=== PATIENT | female | born 1980 | race Caucasian/White ===

== ENCOUNTER 2016-11-12 02:27 | Emergency (ER) | payer SELFPAY ==
[2016-11-12 04:00] VITALS: BMI 34.7
[2016-11-12] MEDS: Lactated Ringer's 1,000 ML IV SCH ×2 (04:00→05:20)
[2016-11-12 04:32] LABS: BASO % 0.4 % (0.0-2.0); EOS # 0.1 K/uL (0.0-0.7); EOS % 1.3 % (0.0-4.0); HEMOGLOBIN 11.3 g/dL (12.0-16.0); LYMPH # 2.1 K/uL (1.0-4.3); LYMPH % 26.4 % (20.0-40.0); MEAN CELL VOLUME 85.5 fl (81.0-99.0); MEAN CORPUSCULAR HEMOGLOBIN 29.3 pg (27.0-31.0); MEAN CORPUSCULAR HGB CONC 34.3 g/dL (33.0-37.0); MEAN PLATELET VOLUME 8.8 fl (7.2-11.7); MONO # 0.5 K/uL (0.0-0.8); MONO % 6.2 % (0.0-10.0); NEUT # 5.2 K/uL (1.8-7.0); NEUT % 65.7 % (50.0-75.0); NRBC % 0.1 % (0.0-0.0); RBC 3.85 Mil/uL (3.80-5.20); RED CELL DISTRIBUTION WIDTH 13.4 % (11.5-14.5); WHITE BLOOD COUNT 7.9 K/uL (4.8-10.8)
[2016-11-12 04:39] LABS: ALB/GLOB RATIO 1.1 (1.0-2.1); ALBUMIN 3.4 g/dL (3.5-5.0); ALT/SGPT 21 U/L (9-52); AST/SGOT 20 U/L (14-36); BLOOD UREA NITROGEN 8 mg/dl (7-17); CALCIUM 8.6 mg/dL (8.4-10.2); GFR AFRICAN-AMERICAN > 60; GFR NON-AFRICAN AMERICAN > 60; SQUAMOUS EPITHIAL 2 /hpf (0-5); URINE BACTERIA OCC (<OCC); URINE BILIRUBIN NEGATIVE (NEGATIVE); URINE BLOOD NEGATIVE (NEGATIVE); URINE CLARITY CLEAR (Clear); URINE COLOR STRAW (YELLOW); URINE GLUCOSE (UA) NEG (Normal); URINE LEUKOCYTE ESTERASE TRACE Leu/uL (Negative); URINE NITRATE NEGATIVE (NEGATIVE); URINE PROTEIN NEGATIVE (NEGATIVE); URINE UROBILINOGEN 0.2-1.0 mg/dL (0.2-1.0)
--- NOTE | 2016-11-12 07:09 | OBHP ---
Datetime: 11/12/2016 04:02 IP Adm Impression: , intrauterine IP Admit Plan: Observation/Evaluation Admit Comment, IP Provider: This is a 36 y/o at 34.5 weeks GA with a JUDY 12/19/16 by LMP an d confirmed by 1st trim US, complaining of CTX that began at 11 pm last night. CTX's occurs every 5/1 0 mins, 8/10 intensity and associated with low pelvic pressure pain. +FM. Last coitus > 10 days ago. Pt denies leakage of fluids, vaginal bleeding or dysuria. Medications: Aspirin and PNV. Allegies: Penicillin-Anaphylaxis. PMHx: denied. PSHx: . OBHx: . 1st complicated by Pre-eclampsia, NVSD at 35 weeks GA on 12/08/14 with No further compli cations. 2nd , twins, delivered by on 01/26/16 at 35 weeks GA. Current started 40 days after C-sections. SHx: No tobacco, alcohol or rec drugs. Lives with and 3 children. A_P: IUP at 34.5 weeks GA. Pt will be observed. IV fluids started. CBC, CMP and urinalysis ordered. Case discussed with Dr Valente. Frank Clement PGY-1. The patient was seen and examined with the resident and I agree with the notes the patient was obs erved for several hours cervical exam long closed posterior patient not in labor discharge home with labor precautions Pelvic Type - PN: Adequate Abdomen - PN: Normal Back - PN: Normal Lungs - PN: Normal Heart - PN: Normal Thyroid - PN: Normal Neurologic - PN: Normal HEENT - PN: Normal General - PN: Normal FHR - Baseline A Provider: 140 Gestation - Est Wks by US: 34.5 EGA AdmitDate IP: 34.5 Vital Signs Provider: Reviewed IP Chief Complaint: Uterine contractions NICHD Variability Prov Fetus A: Moderate 6-25bpm FHR Category Provider Fetus A: Category I NICHD Decel Fetus A IP Provider: None Genitourinary Exam: Normal
== END 2016-11-12 07:25 | disposition home or self-care (01) ==
LOC: H.EROB2 02:27
DX: O47.03 False labor before 37 completed weeks of gestation, third trimester (principal); Z3A.34 34 weeks gestation of pregnancy

== ENCOUNTER 2016-11-16 11:03 | Emergency (ER) | payer SELFPAY ==
[2016-11-16 12:14] VITALS: BMI 37.0
[2016-11-16 13:13] LABS: SQUAMOUS EPITHIAL 1 /hpf (0-5); URINE BACTERIA RARE (<OCC); URINE BILIRUBIN NEGATIVE (NEGATIVE); URINE BLOOD NEGATIVE (NEGATIVE); URINE CLARITY SLIGHTY-CLOUDY (Clear); URINE COLOR YELLOW (YELLOW); URINE GLUCOSE (UA) NEG (Normal); URINE LEUKOCYTE ESTERASE NEG Leu/uL (Negative); URINE NITRATE NEGATIVE (NEGATIVE); URINE PROTEIN NEGATIVE (NEGATIVE); URINE UROBILINOGEN 0.2-1.0 mg/dL (0.2-1.0)
--- NOTE | 2016-11-16 13:29 | OBHP ---
Datetime: 11/16/2016 11:53 IP Adm Impression: , intrauterine IP Admit Plan: Observation/Evaluation Admit Comment, IP Provider: This is a 36 y/o at 35 weeks 2 days GA with a JUDY 12/19/16 by Glory GALVEZ and confirmed by 1st trim US, was sent to [facility] from [facility] clinic after reporting decreased mov ement x 3 days. Last coitus > 15 days ago. Pt denies leakage of fluids or vaginal bleeding. pt repor ts dysuria x 1 month. denies fever, chills, nausea, vomiting, flank pain, headche or dizziness. OBHx: . 1st complicated by Pre-eclampsia, NVSD at 35 weeks GA on 12/08/14 with No further compli cations. 2nd : twins, delivered by on 01/26/16 at 35 weeks GA. Current started 40 days after C-sections. PMHx: denied. SHx: No tobacco, alcohol or rec drugs. Lives with and 3 children. Medications: Aspirin and PNV. Allegies: Penicillin-Anaphylaxis. Assessment: IUP at 35.2 weeks GA presents to [facility] for decreased movement for last 3 days. dysuria Plan: 1. NST 2: UA addendum p:d/c pt home kick counts d/w pt with speech language pathologist. return to hospital if decreased fm is noted wit kick clunst f/u at next ob appt Continuous trace monitoring. UA Growth scan done on 10/25/16 shows HECTOR 17 and BPP 8/8. nst reactive d/w pt - she states she has not felt movement while in [facility] today. Extremities - PN: Normal Abdomen - PN: Normal Back - PN: Normal Lungs - PN: Normal Heart - PN: Normal Neurologic - PN: Normal HEENT - PN: Normal General - PN: Normal FHR - Baseline A Provider: 120 Comments, ACOG Physical Exam: 11/13 ob us bpp 8/8; hector nl; s c/w dates UA NEG IP Hx Assessment: The History has been Reviewed and is Current EGA AdmitDate IP: 35.2 Vital Signs Provider: Reviewed IP Chief Complaint: Decreased movement NICHD Variability Prov Fetus A: Moderate 6-25bpm NICHD Accel Fetus A IP Provider: 15X15 FHR Category Provider Fetus A: Category I NICHD Decel Fetus A IP Provider: None Genitourinary Exam: Normal DTRs - PN: Normal (Annotations: Data stored by CPN on behalf of user)
== END 2016-11-16 13:22 | disposition home or self-care (01) ==
LOC: H.EROB2 11:03
DX: O47.03 False labor before 37 completed weeks of gestation, third trimester (principal); Z3A.35 35 weeks gestation of pregnancy; Z87.59 Personal history of other complications of pregnancy, childbirth and the puerperium

== ENCOUNTER 2016-12-14 07:55 | Inpatient (IN) | payer MEDICAID, SELFPAY ==
[2016-12-14] MEDS: Lactated Ringer's 1,000 ML IV SCH ×3 (08:15→21:09)
[2016-12-14] MEDS ORDERED: Lactated Ringer's 1,000 ML IV SCH (08:23)
[2016-12-14 08:26] VITALS: BMI 36.6
[2016-12-14] MEDS ORDERED: Oxytocin 30 units/LR 500ML 30 U/500 ML BAG IV ONE (08:39)
[2016-12-14 08:45] LABS: BASO # 0.1 K/uL (0.0-0.2); BASO % 0.8 % (0.0-2.0); EOS # 0.1 K/uL (0.0-0.7); EOS % 1.2 % (0.0-4.0); HEMATOCRIT 37.3 % (34.0-47.0); LYMPH # 2.5 K/uL (1.0-4.3); LYMPH % 33.7 % (20.0-40.0); MEAN CELL VOLUME 85.1 fl (81.0-99.0); MEAN CORPUSCULAR HEMOGLOBIN 28.9 pg (27.0-31.0); MEAN PLATELET VOLUME 8.9 fl (7.2-11.7); MONO # 0.4 K/uL (0.0-0.8); MONO % 5.9 % (0.0-10.0); NEUT # 4.3 K/uL (1.8-7.0); NEUT % 58.4 % (50.0-75.0); NRBC % 0.1 % (0.0-0.0); RED CELL DISTRIBUTION WIDTH 13.8 % (11.5-14.5); WHITE BLOOD COUNT 7.4 K/uL (4.8-10.8)
[2016-12-14] MEDS ORDERED: Phenylephrine 10 mg/ml Inj ONE (09:05)
[2016-12-14] MEDS ORDERED: ePHEDrine 50 mg/ml Inj ONE (09:05)
[2016-12-14] MEDS ORDERED: Morphine 1 mg/ml preservative-free Inj(Duramorph) ONE (09:10)
[2016-12-14] MEDS ORDERED: Clindamycin 600 MG in Sodium Chloride 0.9% 100 ML IVPB SCH (09:15)
[2016-12-14] MEDS ORDERED: DiphenhydrAMINE 50 mg/ml Inj IVP PRN ×2 (10:28→15:36)
[2016-12-14] MEDS ORDERED: Oxycodone/Acetaminophen 5/325 mg Tab PO PRN ×3 (11:15→15:36)
[2016-12-14] MEDS ORDERED: Trimethobenzamide 200 mg/2 mL Inj IM ONE ×2 (14:02→14:10)
--- NOTE | 2016-12-14 14:20 | OBDS ---
DELIVERY PERSONNEL Delivery Doctor: Tatum Rinaldi MD Scrub Nurse: Gabbi Jalloh OBT Architectural Modeler: Corrine Edmondson RN Anesthesiologist: Nakul Rueda MD MATERNAL INFORMATION Delivery Anesthesia: Spinal Medications in Delivery: Pitocin 30 units Estimated Blood Loss (ml): 650 Placenta Cultured: No Maternal Complications: None Provider Comments: op note start: 9:58 preop dx: 39.2wks; prior cd; latent phase labor postop dx: same procedure: repeat cd surg: orossetos 1st asst: fhyman 2nd asst: [id number] sangeetha lupe anesth: spinal dr rueda ebl: 650cc findings: viable female 3620g 9_9; dense adhesions of rectus fascia to overlying adipose tissue, u nderlying rectus muscle path: none griffiths to drainage pt to rr to nbn complic none LABOR SUMMARY EDC: 12/19/2016 00:00 No. Babies in Womb: 1 Attempted: No Labor Anesthesia: Spinal LABOR INFORMATION Reason for Induction: Not Applicable Oxytocin: N/A Group B Beta Strep: Negative Steroids Given: None Reason Steroids Not Administered: Not Applicable MEMBRANES Membranes Rupture Method: Artificial Rupture of Membranes: 12/14/2016 10:14 Length of Rupture (hrs): 0.00 Amniotic Fluid Color: Clear Amniotic Fluid Amount: Moderate Amniotic Fluid Odor: Normal STAGES OF LABOR Stage 3 hrs: 0 Stage 3 min: 1 CSECTION DELIVERY Primary Indication: Repeat Elective CSection Urgency: Elective CSection Incidence: Repeat Labor: No Labor Elective: Elective CSection Incision: Lower Uterine Transverse BABY A INFORMATION Infant Delivery Date/Time: 12/14/2016 10:14 Method of Delivery: Born in Route : No : N/A Forceps: N/A Vacuum Extraction: N/A Shoulder Dystocia : No SHOULDER DYSTOCIA BABY A Infant Delivery Date/Time: 12/14/2016 10:14 PRESENTATION/POSITION BABY A Presentation: Cephalic Cephalic Presentation: Vertex Vertex Position: Left Occipital Anterior Breech Presentation: N/A PLACENTA INFORMATION BABY A Placenta Delivery Time : 12/14/2016 10:15 Placenta Method of Delivery: Spontaneous Placenta Status: Delivered SCORES BABY A Heart Rate 1 min: >100 bpm Resp Effort 1 min: Good Cry Reflex Irritability 1 min: Cough or Sneeze or Pulls Away Muscle Tone 1 min: Active Motion Color 1 min: Body Coronita, Extremities Blue Resuscitation Effort 1 min: Tactile Stimulation SCORE 1 MIN: 9 Heart Rate 5 min: >100 bpm Resp Effort 5 min: Good Cry Reflex Irritability 5 min: Cough or Sneeze or Pulls Away Muscle Tone 5 min: Active Motion Color 5 min: Body Coronita, Extremities Blue Resuscitation Effort 5 min: Tactile Stimulation SCORE 5 MIN: 9 INFANT INFORMATION BABY A Gestational Age at Delivery: 39.0 Gestational Status: Term Infant Outcome : Liveborn Condition : Stable Sex: Female IDENTIFICATION/MEDS BABY A ID Band Number: [id number] ID Band Location: Left Leg; Left Arm WEIGHT/LENGTH BABY A Birthweight (gms): 3620 Infant Weight (lb): 8 Weight (oz): 0 CORD INFORMATION BABY A No. Cord Vessels: 3 Nuchal Cord : N/A Nuchal Cord Other: body cord loose Cord Blood Taken: N/A Infant Suction: None ASSESSMENT BABY A Infant Complications: None Physical Findings at Delivery: Within Normal Limits Respirations: Appears Normal Apprentice Lineman Third Step/ALS Called : No Care By: Saleem Julian Transferred To: Remains with Mother
--- NOTE | 2016-12-14 15:01 | OBADHP ---
Datetime: 12/14/2016 09:12 Admit Comment, IP Provider: CC: scheduled repeat HPI: 36 YO 39.2 wks IUP presents to [facility] for repeat scheduled . Patient notes con tractions that started around 6AM this morning and are currently 5 mins apart. Endorses good FM, no L OF, no VB + contractions. No complications during this thus far. Was taking asa 81mg during the , stopped 2 weeks ago. Denies headache, dizziness, fever, chest pain, dyspnea. Obhx: NVD in 2014, C section for twin gestation in 2016;hx of preclampsia during the first pregnan cy Gynhx: denies hx of STIs, last pap was 2015 and normal PMH: denies SHx: 2015 FH: HTN and FM in mother SH: , denies use of alcohol, illicit drugs and smoking Allergies: penicilln, anaphalyxis Meds: PNV and ASA 81mg (stopped 2 weeks ago) - for h/o prophylaxis PE: VS: stable GEN: NAD, looks comfortable Cardio: S1S2 no M/G/R Resp: clear sounds b/l Abdomen: Gravid, NT, BS+ Ext: no edema, NT Cerv: Closed and 30% effaced FHM: 120, moderate variability. Contractions every 7-8 mins Assessment/Plan: 36 YO 39.2 wks IUP presents to [facility] for repeat scheduled . Pt is doing well, abx given clinda 600mg. Bloodtype A+, GC neg, GBS neg, Hep B neg, HIV neg, RPR neg, Rubella immune. -Admit to Labor and Delivery for repeat c-sec -NPO diet -CBC/Type and Screen/RPR, Intravenous access - Monitoring, Monitor Labor progress, Discussion about her condition including labor and deli very Pt seen and discussed with Dr. Mariel Esquivel, PGYI obh addendum: pt seen _ examined by me. agree with above assessmenta and plan. informed consent obtained for cd. Pelvic Type - PN: Adequate Extremities - PN: Normal Abdomen - PN: Normal Back - PN: Not Done Breast - PN: Not Done Lungs - PN: Normal Heart - PN: Normal Thyroid - PN: Not Done Neurologic - PN: Normal HEENT - PN: Normal General - PN: Normal FHR - Baseline A Provider: 120 Membranes, Provider: Intact Contraction Comments Provider: q4-6min IP Hx Assessment: The History has been Reviewed and is Current Vital Signs Provider: Reviewed; Within Normal Limits IP Chief Complaint: Scheduled Section NICHD Variability Prov Fetus A: Moderate 6-25bpm NICHD Accel Fetus A IP Provider: 15X15 FHR Category Provider Fetus A: Category I Dilatation, Provider: 0 Effacement, Provider: 30 Station, Provider: -3 Genitourinary Exam: Normal DTRs - PN: Not Done EGA AdmitDate IP: 39.2 IP Adm Impression: Term, intrauterine IP Admit Plan: Admit to unit; Initiate Section protocol Datetime: 11/16/2016 11:53 Comments, ACOG Physical Exam: 11/13 ob us bpp 8/8; anna nl; s c/w dates UA NEG NICHD Decel Fetus A IP Provider: None Datetime: 11/12/2016 04:02 Gestation - Est Wks by US: 34.5
[2016-12-14] MEDS ORDERED: Simethicone 80 mg Chewtab PO SCH (16:00)
[2016-12-14] MEDS: Simethicone 80 mg Chewtab PO SCH ×2 (16:00→22:01)
[2016-12-15] MEDS: Simethicone 80 mg Chewtab PO SCH ×4 (04:33→21:20)
[2016-12-15] MEDS: Lactated Ringer's 1,000 ML IV SCH (04:35)
[2016-12-15] MEDS: Oxycodone/Acetaminophen 5/325 mg Tab PO PRN ×3 (04:43→21:39)
--- NOTE | 2016-12-15 05:47 | OP ---
PROCEDURE DATE: 12/14/2016 PREOPERATIVE DIAGNOSES: 1. A 39.2-week . 2. Latent phase labor onset. 3. History of prior section. 4. Declined vaginal after section. POSTOPERATIVE DIAGNOSES: 1. A 39.2-week . 2. Latent phase labor onset. 3. History of prior section. 4. Declined vaginal after section. PROCEDURE: Repeat low-transverse section. SURGEON: Dr. Claude Floyd. CORRECTIONS UNIT SUPERVISOR: Dr. Jacquelin Liang. SECOND ASP DEVELOPER: Dr. Brook Francois, PGY-1. TYPE OF ANESTHESIA: Spinal. ANESTHESIOLOGIST: Dr. Rueda. ESTIMATED BLOOD LOSS: 650 mL. FINDINGS: Showed a viable female in left occiput, anterior presentation with a weight of 3620 g and Apgars of 9 and 9 and clear amniotic fluid. Dense adhesions of the rectus fascia to the overlying adipose tissue and the underlying rectus muscle. PATHOLOGY SPECIMEN: None. DRAINS: Fishman catheter to drainage. DESTINATION: The patient to recovery room and to nursery. COMPLICATIONS: None. INDICATIONS: The patient is a 36-year-old female 3 para 0-2-0-3 with a history of delivery vaginally followed by a primary section for twins 10 months ago. She presents today for a repeat section. An informed consent was obtained for the surgery and the patient desired the surgical procedure. DESCRIPTION OF PROCEDURE: The patient was taken back to the operating room. She underwent a spinal anesthesia and a Fishman catheter was subsequently placed. She was then placed in dorsal supine position with a leftward tilt, prepped and draped in the routine sterile fashion. A Pfannenstiel skin incision was made at the site of the old scar and the incision was carried down to the underlying rectus fascia, which is incised in the midline and the incision was extended bilaterally. There were dense adhesions noted of the subcutaneous tissue down to the rectus fascia. The inferior rectus facial edge was grasped with Kochers, and the underlying rectus muscle was dissected off. The same procedure was performed along the superior rectus fascial edge. The superior rectus fascia was densely adherent to the underlying rectus muscle. The bladder was noted to be elevated due to the adhesions of the peritoneum to the overlying rectus muscle. The abdominal cavity was entered superiorly and the adhesions were lysed. The adhesions of the peritoneum to the overlying rectus muscle and underlying uterus were lysed with blunt and sharp dissection. A bladder flap was created using a sharp dissection. The bladder blade was reinserted to be retrack the bladder further inferiorly. A low transverse incision was made with the knife and the uterine cavity entered. The uterine incision was digitally extended laterally and in a superior & inferior manner. The 's head was delivered followed by the remaining portion of the baby. The mouth and nares were suctioned. The cord was clamped and cut. The baby handed off to the awaiting director of sales support. Cord blood was collected. The placenta was delivered spontaneously and intact. The uterus was exteriorized and cleared of all clots and debris. The uterine incision was reapproximated with 0-Vicryl in a running locked fashion followed by an imbricated stitch of 0- Monocryl. The abdomen was irrigated and cleared of all clots and debris. The uterus was returned into the abdomen. The uterine incision was reinspected and good hemostasis was confirmed. The gutters were cleared of all clots and debris. The peritoneum was reapproximated with 2-0 Vicryl in a running fashion and the muscle with running sutures of 2-0-Vicryl. The fascia was reapproximated with 0-Vicryl beginning in the left lateral corner and going to the midline and another stitch of 0-Vicryl beginning in the right lateral quadrant going to the midline. Each suture was respectively tied. The wound was irrigated and good hemostasis confirmed. The subcutaneous tissue was re-approximated with 2-0 plain in a simple interrupted fashion. The skin was reapproximated with dustin. Of note Dr. Jacquelin Liang, was my first certified surgical tech/first assistant. She assisted in surgical entry, surgical exposure, surgical hemostasis, delivery of the baby and surgical closure. Her assistance was essential to the performance of the procedure. She also assisted in surgical lysis of adhesions. All sponge, lap and needle counts were correct x4. The patient returned to the recovery room in satisfactory condition. Claude Floyd MD MARY
[2016-12-15 07:20] LABS: BASO % 0.4 % (0.0-2.0); EOS # 0.1 K/uL (0.0-0.7); EOS % 0.9 % (0.0-4.0); HEMATOCRIT 32.7 % (34.0-47.0); LYMPH # 1.6 K/uL (1.0-4.3); MEAN CELL VOLUME 84.8 fl (81.0-99.0); MEAN CORPUSCULAR HEMOGLOBIN 28.9 pg (27.0-31.0); MEAN CORPUSCULAR HGB CONC 34.1 g/dL (33.0-37.0); MEAN PLATELET VOLUME 8.8 fl (7.2-11.7); MONO # 0.5 K/uL (0.0-0.8); MONO % 5.8 % (0.0-10.0); NEUT # 6.6 K/uL (1.8-7.0); NEUT % 74.9 % (50.0-75.0); RED CELL DISTRIBUTION WIDTH 13.6 % (11.5-14.5); WHITE BLOOD COUNT 8.8 K/uL (4.8-10.8)
--- NOTE | 2016-12-15 18:59 | OBPPN ---
Datetime: 12/15/2016 05:51 PP Pain Prov: Within normal limits PP Nausea Prov: Denies PP Flatus Prov: No PP BM Prov: No PP Breasts Prov: Not Done PP Heart Prov: Normal PP Lungs Prov: Normal PP Abdomen/Uterus Prov: Normal PP Lochia Prov: Normal PP Vulva/Perineum Prov: Not Done PP CVA Tenderness Prov: Not Done PP Extremities Prov: Normal PP C/S Incision Prov: Normal PP Progress Prov: Normal PP Impression Prov: Normal progression PP Plan Prov: Continue present management PP Progress Note Prov: [employer]# [id number] S: 36 yo s/p on 12/14/16 at 10:15. seen and examined at bedside this AM. No overnigh t events. Pt reports mild abdominal pain, but well controlled with pain meds. griffiths is placed, will d /c this morning, dressing removed by me, incision site looks clean. no nausea, advised to advance t as tolerated (DIDNT EAT ANYTHING YESTERDAT DUE TO NAUSEA AND VOMITING). Lochia is similar to menses volume. no Bowel movement or passing gas per rectum. Denies fever/chills, diarrhea, nausea/vomiting, chest pain, dyspnea, and dizziness. O: VS: stable GEN: NAD, seen baby Cardio: s1s2, no M/G/R Resp: clear breath sounds b/l Abdomen: BS+, tenderness to palpation. Incision noted, well no exudate seen, dry and intact. Uteru s is firm and at the level of the umbilicus. EXT: No edema, calves nontender NEURO/PSYCHI: AAOx3, no grossly focal deficit, preserved affect and mood. Assessment/Plan: 36yo s/p on 12/14/16. Pt remains afebrile, tolerating pain with med ication, doing well on PoD#1. OOB with caution SCDs for DVT prophylaxis, encouraged ambulating Percocet 5/325mg, and Ibuprofen 600mg for pain. Colace 100mg PO BID for constipation Encourage f/u CBC post oP Anticipated d/c to home tomorrow, 12/17/16 --- Felisha Villa, PGY-1 OB Hospitalist note: This pt was seen and examined by me. Agree with above note. SALLY Was called at 16:15pm for pain that was not relieved with pain meds. She had used tight belt and started to have pain. with Shannon translating, patient c/o abd yaniv more midline and also bilateral . On examinamtoin more tender midline right on uterus. Bilaterally no pain/non tender...ovreall no guarding/reboound...will give Toradaol 30mg IM one dose. IP PP Procedures: None Vital Signs Provider PP: Reviewed; Within Normal Limits
[2016-12-16] MEDS: Simethicone 80 mg Chewtab PO SCH ×3 (04:26→21:24)
[2016-12-16] MEDS: Oxycodone/Acetaminophen 5/325 mg Tab PO PRN ×3 (06:53→21:24)
--- NOTE | 2016-12-16 09:08 | OBPPN ---
Datetime: 12/16/2016 05:39 PP Pain Prov: Within normal limits PP Nausea Prov: Denies PP Flatus Prov: Yes PP BM Prov: No PP Breasts Prov: Not Done PP Heart Prov: Normal PP Lungs Prov: Normal PP Abdomen/Uterus Prov: Normal PP Lochia Prov: Normal PP Vulva/Perineum Prov: Not Done PP CVA Tenderness Prov: Not Done PP Extremities Prov: Normal PP C/S Incision Prov: Normal PP Progress Prov: Normal PP Impression Prov: Normal progression PP Plan Prov: Continue present management PP Progress Note Prov: Milyoni# [id number] S: 36 yo s/p on 12/14/16 at 10:15. pt was seen. No overnight events, yesterday c/o p ain and Toradl given which helped. Pt reports mild abdominal pain today, but well controlled with jessica n meds. Incision site looks clean. no nausea, advised to advance diet as tolerated. Lochia is similar to menses volume. no Bowel movement but passing gas per rectum. Denies fever/chills, diarrhea, nause a/vomiting, chest pain, dyspnea, and dizziness. O: VS: stable GEN: NAD, seen baby Cardio: s1s2, no M/G/R Resp: clear breath sounds b/l Abdomen: BS+, tenderness to palpation. Incision noted, well no exudate seen, dry and intact. Uteru s is firm and atthe level of the umbilicus. EXT: No edema, calves nontender NEURO/PSYCHI: AAOx3, no grossly focal deficit, preserved affect and mood. Assessment/Plan: 36yo s/p on 12/14/16. Pt remains afebrile, tolerating pain with med ication, doing well on PoD#2. OOB with caution SCDs for DVT prophylaxis, encouraged ambulating Percocet 5/325mg, and Ibuprofen 600mg for pain. Colace 100mg PO BID for constipation Encourage CBC post oP 11.1/32.7 Anticipated d/c to home tomorrow, 12/17/16 --- Felisha Villa, PGY-1 The patient was seen with the resident and I agree with note. Encourage ambulation and analgesia a s needed anticipate discharge in a.m. IP PP Procedures: None Vital Signs Provider PP: Reviewed; Within Normal Limits
[2016-12-17] MEDS: Oxycodone/Acetaminophen 5/325 mg Tab PO PRN (04:18)
[2016-12-17] MEDS: Simethicone 80 mg Chewtab PO SCH ×2 (06:56→09:34)
--- NOTE | 2016-12-17 09:59 | OBPPN ---
Datetime: 12/17/2016 06:11 PP Pain Prov: Within normal limits PP Nausea Prov: Denies PP Flatus Prov: Yes PP BM Prov: Yes PP Breasts Prov: Not Done PP Heart Prov: Normal PP Lungs Prov: Normal PP Abdomen/Uterus Prov: Normal PP Lochia Prov: Normal PP Vulva/Perineum Prov: Not Done PP CVA Tenderness Prov: Normal PP Extremities Prov: Normal PP C/S Incision Prov: Normal PP Progress Prov: Normal PP Impression Prov: Normal progression PP Plan Prov: Discharge PP Progress Note Prov: [facility]# [id number] S: 36 yo s/p on 12/14/16 at 10:15. pt was seen at bedside, sleeping comfortably, pt is still c/o 5/10 pain. Incision site looks clean. no nausea, advised to advance diet as tolerated. L ochia is similar to menses volume. had Bowel movement and passing gas per rectum. Denies fever/chills , diarrhea, nausea/vomiting, chest pain, dyspnea, and dizziness. O: VS: stable GEN: NAD, seen baby Cardio: s1s2, no M/G/R Resp: clear breath sounds b/l Abdomen: BS+, tenderness to palpation. Incision noted, well no exudate seen, dry and intact. Uteru s is firm and at level of the umbilicus. EXT: No edema, calves nontender NEURO/PSYCHI: AAOx3, no grossly focal deficit, preserved affect and mood. Assessment/Plan: 36yo s/p on 12/14/16. Pt remains afebrile doing well on PoD#3. OOB with caution encouraged ambulating and breast feeding Percocet 5/325mg, and Ibuprofen 600mg for pain. Colace 100mg PO BID for constipation CBC post oP 11.1/32.7 Anticipated d/c to home today, 12/17/16 pt was instructed to come back to ER if too much pain, fever or bleeding --- Felisha Villa, PGY-1 obh addendum: pt seen _ examined by me. agree with above assessment and plan. IP PP Procedures: None Vital Signs Provider PP: Reviewed; Within Normal Limits
[2016-12-18 09:45] VITALS: BP 135/75; PULSE 84; RESP 20; TEMP 98.6; O2SAT 96
== END 2016-12-17 09:13 | disposition home or self-care (01) | DRG 371 ==
LOC: H.EROB2 07:55 → H.L&D 08:26 → H.OB/GYN 15:15
PROVIDERS: ADMIT Obstetrics & Gynecology; ATTEND Obstetrics & Gynecology
PROC: 10D00Z1 Extraction of Products of Conception, Low, Open Approach (ICD-10-PCS; principal; 2016-12-14)
PROC: 4A1HXCZ Monitoring of Products of Conception, Cardiac Rate, External Approach (ICD-10-PCS; 2016-12-14)
DX: O34.211 Maternal care for low transverse scar from previous cesarean delivery (principal); N85.8 Other specified noninflammatory disorders of uterus; Z37.0 Single live birth; O69.81X0 Labor and delivery complicated by cord around neck, without compression, not applicable or unspecified; Z3A.39 39 weeks gestation of pregnancy; O62.1 Secondary uterine inertia

== ENCOUNTER 2017-01-28 11:11 | Emergency (ER) | payer SELFPAY ==
[2017-01-28 11:11] VITALS: BMI 36.6
[2017-01-28 11:16] VITALS: BP 107/74; PULSE 68; RESP 18; TEMP 98.3; O2SAT 100
== END 2017-01-28 13:57 | disposition home or self-care (01) ==
LOC: H.ER 11:11
DX: F33.8 Other recurrent depressive disorders (principal)